=== PATIENT | female | born 1985 | race African-American/Black ===

== ENCOUNTER 2018-03-22 10:55 | Emergency (ER) | payer OTHER ==
[~2018-03-22] VITALS: Ht 162.6 cm; Wt 74.0 kg
[2018-03-22 13:20] VITALS: BP 126/87
[2018-03-22] MEDS ORDERED: DIAZEPAM 5 MG TABLET PO ONE (13:45)
[2018-03-22] MEDS ORDERED: IBUPROFEN 400MG TABLET PO ONE (13:45)
[2018-03-22] MEDS ORDERED: ACETAMINOPHEN 500MG TABLET PO ONE (13:45)
== END 2018-03-22 13:49 | disposition home or self-care (01) ==
LOC: ER 13:18
DX: M54.5 Low back pain (principal); G89.29 Other chronic pain
CPT/HCPCS: 99284; Z7610

== ENCOUNTER 2020-09-20 23:02 | Emergency (ER) | payer OTHER ==
[~2020-09-20] VITALS: Ht 167.6 cm; Wt 66.0 kg
[2020-09-20 23:03] VITALS: BP 127/85
== END 2020-09-21 03:37 | disposition home or self-care (01) ==
LOC: ER 23:20
DX: R07.89 Other chest pain (principal)
CPT/HCPCS: 71045; 93005; 99283